=== PATIENT | male | born 1985 | race Caucasian/White ===

== ENCOUNTER 2019-02-14 19:14 | Emergency (ER) | payer MEDICAID ==
[~2019-02-14] VITALS: Ht 172.7 cm; Wt 104.5 kg
[~2019-02-14 19:14] MED LIST: ALBU8.5H8 IH; CYCL-1 PO; HYDR-4383 PO; IBUP-1985 PO; ONDA4TAB6 PO
[2019-02-14 19:18] VITALS: BP 145/98
[2019-02-14] MEDS ORDERED: triamcinolone acetonide 40mg/ml inj IM ONE (20:55)
[2019-02-14] MEDS ORDERED: diphenhydrAMINE 25mg capsule PO ONE (20:55)
[2019-02-14] MEDS ORDERED: CEPH500C5 PO (21:20)
[2019-02-14] MEDS ORDERED: PRED20TA PO (21:20)
== END 2019-02-14 21:28 | disposition home or self-care (01) ==
LOC: ER 19:14
DX: L23.7 Allergic contact dermatitis due to plants, except food (principal); J45.909 Unspecified asthma, uncomplicated; F15.90 Other stimulant use, unspecified, uncomplicated; Z86.19 Personal history of other infectious and parasitic diseases; Z98.890 Other specified postprocedural states; Z88.7 Allergy status to serum and vaccine; Z79.899 Other long term (current) drug therapy
CPT/HCPCS: 96372; 99283; J3301; Q0163

== ENCOUNTER 2019-03-14 17:33 | Emergency (ER) | payer MEDICAID ==
[~2019-03-14] VITALS: Ht 172.7 cm; Wt 100.0 kg
[2019-03-14 17:36] VITALS: BP 134/82
[2019-03-14] MEDS ORDERED: PRED10TA PO (19:10)
[2019-03-14] MEDS ORDERED: FAMO40TA73 PO (19:11)
[2019-03-14] MEDS ORDERED: DIPH25CA83 PO (19:11)
== END 2019-03-14 19:34 | disposition home or self-care (01) ==
LOC: ER 17:35
DX: L23.7 Allergic contact dermatitis due to plants, except food (principal); J45.909 Unspecified asthma, uncomplicated; G89.29 Other chronic pain; F15.90 Other stimulant use, unspecified, uncomplicated; Z86.19 Personal history of other infectious and parasitic diseases; Z98.890 Other specified postprocedural states; Z88.7 Allergy status to serum and vaccine; Z79.899 Other long term (current) drug therapy
CPT/HCPCS: 99283

== ENCOUNTER 2020-03-18 18:09 | Emergency (ER) | payer MEDICAID ==
[~2020-03-18] VITALS: Ht 175.3 cm; Wt 102.6 kg
[~2020-03-18 18:09] MED LIST changes: +DIPH25CA83 PO; +FAMO40TA73 PO; +PRED10TA PO
[2020-03-18 18:36] VITALS: BP 138/81
[2020-03-18] MEDS ORDERED: penicillin G benzathine 1.2 million unit/2ml syringe IM ONE (19:05)
== END 2020-03-18 19:45 | disposition home or self-care (01) ==
LOC: ER 18:09
DX: Z20.2 Contact with and (suspected) exposure to infections with a predominantly sexual mode of transmission (principal); J45.909 Unspecified asthma, uncomplicated; G89.29 Other chronic pain; F17.200 Nicotine dependence, unspecified, uncomplicated; F15.90 Other stimulant use, unspecified, uncomplicated; Z86.19 Personal history of other infectious and parasitic diseases; Z98.890 Other specified postprocedural states; Z88.8 Allergy status to other drugs, medicaments and biological substances; Z79.899 Other long term (current) drug therapy
CPT/HCPCS: 36415; 86592; 96372; 99283; J0561

== ENCOUNTER 2021-01-30 21:20 | Emergency (ER) | payer MEDICAID ==
[~2021-01-30] VITALS: Ht 172.7 cm; Wt 100.0 kg
[~2021-01-30 21:20] MED LIST changes: +ALBU8.5H17 IH; -ALBU8.5H8 IH
[2021-01-30 21:38] VITALS: BP 141/106
[2021-01-30] MEDS ORDERED: PRED10TA23 PO (21:45)
[2021-01-30] MEDS ORDERED: triamcinolone acetonide 40mg/ml inj IM ONE (21:45)
[2021-01-30] MEDS ORDERED: predniSONE 20 mg tablet PO ONE (21:45)
[2021-01-30] MEDS ORDERED: HYDR28CR14 TOP (21:45)
== END 2021-01-30 22:03 | disposition home or self-care (01) ==
LOC: ER 21:21
DX: L23.7 Allergic contact dermatitis due to plants, except food (principal); R06.02 Shortness of breath; J45.909 Unspecified asthma, uncomplicated; G89.29 Other chronic pain; F15.90 Other stimulant use, unspecified, uncomplicated; Z86.19 Personal history of other infectious and parasitic diseases; Z98.890 Other specified postprocedural states; Z88.7 Allergy status to serum and vaccine; Z79.899 Other long term (current) drug therapy
CPT/HCPCS: 96372; 99283; J3301; J7512

== ENCOUNTER 2021-09-13 21:32 | Emergency (ER) | payer MEDICAID ==
[~2021-09-13] VITALS: Ht 175.3 cm; Wt 102.3 kg
[~2021-09-13 21:32] MED LIST changes: +HYDR28CR14 TOP
[2021-09-13 21:35] VITALS: BP 176/99
[2021-09-13 22:10] LABS: BASOPHILS % (AUTO) 0.5 % (0-1); EOSINOPHILS # (AUTO) 0.2 X10'3 (0-0.9); EOSINOPHILS % (AUTO) 3.1 % (0-6); HEMATOCRIT 44.9 % (42.0-52.0); HEMOGLOBIN 15.2 g/dl (14.0-17.9); LYMPHOCYTES # (AUTO) 1.6 X10'3 (1.1-4.8); LYMPHOCYTES % (AUTO) 31.6 % (21-51); MEAN CORPUSCULAR HEMOGLOBIN 29.9 PG (27.0-31.0); MEAN CORPUSCULAR HGB CONC 33.9 g/dL (33.0-36.5); MEAN CORPUSCULAR VOLUME 88.2 FL (78-98); MEAN PLATELET VOLUME 8.3 FL (7.4-10.4); MONOCYTES # (AUTO) 0.5 X10'3 (0-0.9); MONOCYTES % (AUTO) 9.7 % (2-12); NEUTROPHILS # (AUTO) 2.9 X10'3 (1.8-7.7); NEUTROPHILS % (AUTO) 55.1 % (42-75); PLATELET COUNT 260 X10'3 (140-440); RED BLOOD COUNT 5.09 X10'6 (4.70-6.10); RED CELL DISTRIBUTION WIDTH 12.7 % (11.5-14.5); WHITE BLOOD COUNT 5.2 X10'3 (4.5-11.0)
[2021-09-13 22:21] LABS: ALANINE AMINOTRANSFERASE 110 U/L (12-78); ALBUMIN 4.1 G/DL (3.4-5.0); ALKALINE PHOSPHATASE 97 IU/L (46-116); ANION GAP 7 (8-16); ASPARTATE AMINO TRANSFERASE 63 U/L (10-37); BILIRUBIN,TOTAL 0.2 MG/DL (0.1-1.0); BLOOD UREA NITROGEN 19 MG/DL (7-18); BUN/CREATININE RATIO 17.3 (5.4-32.0); CALCIUM 9.2 MG/DL (8.5-10.1); CHLORIDE 104 MMOL/L (99-107); GLUCOSE 113 MG/DL (70-104); LIPASE 75 U/L (73-393); POTASSIUM 4.6 MMOL/L (3.5-5.1); SODIUM 143 MMOL/L (135-145); TOTAL PROTEIN 8.4 G/DL (6.4-8.2); eGFR 77 ML/MIN
== END 2021-09-13 22:38 | disposition left against medical advice (07) ==
LOC: ER 21:33
DX: R10.9 Unspecified abdominal pain (principal); Z53.21 Procedure and treatment not carried out due to patient leaving prior to being seen by health care provider
CPT/HCPCS: 36415; 80053; 83690; 85025

== ENCOUNTER 2021-09-18 15:15 | Emergency (ER) | payer MEDICAID ==
[~2021-09-18] VITALS: Ht 175.3 cm; Wt 100.0 kg
[2021-09-18 15:56] VITALS: BP 129/93
[2021-09-18] MEDS ORDERED: DOXYCYCLINE 100MG CAPSULE PO STA (18:16)
[2021-09-18] MEDS ORDERED: cephalexin 250mg capsule PO ONE (18:20)
[2021-09-18] MEDS ORDERED: DOXY100C76 PO (18:33)
[2021-09-18] MEDS ORDERED: CEPH500C2 PO (18:33)
== END 2021-09-18 18:50 | disposition home or self-care (01) ==
LOC: ER 15:15
DX: L03.116 Cellulitis of left lower limb (principal); I10 Essential (primary) hypertension; J45.909 Unspecified asthma, uncomplicated; G89.29 Other chronic pain; M54.50 Low back pain, unspecified; F17.200 Nicotine dependence, unspecified, uncomplicated; F15.20 Other stimulant dependence, uncomplicated; Z88.7 Allergy status to serum and vaccine
CPT/HCPCS: 99283

== ENCOUNTER 2022-06-07 14:03 | Emergency (ER) | payer MEDICAID ==
[~2022-06-07] VITALS: Ht 175.3 cm; Wt 106.8 kg
[2022-06-07 14:28] VITALS: BP 156/90
[2022-06-07] MEDS ORDERED: amox tr/potassium clavulanate 875/125mg TAB PO ONE (14:30)
[2022-06-07] MEDS ORDERED: bacitracin 15gm ointment TP ONE (14:35)
[2022-06-07] MEDS ORDERED: AMOX-117 PO (15:17)
== END 2022-06-07 15:50 | disposition home or self-care (01) ==
LOC: ER 14:03
DX: S61.431A Puncture wound without foreign body of right hand, initial encounter (principal); I10 Essential (primary) hypertension; J45.909 Unspecified asthma, uncomplicated; W50.3XXA Accidental bite by another person, initial encounter; Y93.89 Activity, other specified; Y92.89 Other specified places as the place of occurrence of the external cause; Y99.8 Other external cause status
CPT/HCPCS: 73130; 99283

== ENCOUNTER 2022-07-27 16:37 | Emergency (ER) | payer MEDICAID ==
[~2022-07-27] VITALS: Ht 175.3 cm; Wt 140.2 kg
[2022-07-27 16:39] VITALS: BP 189/123
[2022-07-27] MEDS ORDERED: AMOX-117 PO (16:54)
[2022-07-27] MEDS ORDERED: IBUP-1984 PO (16:54)
[2022-07-27] MEDS ORDERED: HYDROcodone/acetaminophen 5mg/325mg tablet PO ONE (16:55)
== END 2022-07-27 17:10 | disposition home or self-care (01) ==
LOC: ER 16:38
DX: K04.7 Periapical abscess without sinus (principal); I10 Essential (primary) hypertension; G89.29 Other chronic pain; M54.9 Dorsalgia, unspecified; F15.10 Other stimulant abuse, uncomplicated; Z79.899 Other long term (current) drug therapy; Z79.1 Long term (current) use of non-steroidal anti-inflammatories (NSAID); Z79.2 Long term (current) use of antibiotics
CPT/HCPCS: 99283

== ENCOUNTER 2022-11-07 06:34 | Emergency (ER) | payer MEDICAID ==
[~2022-11-07] VITALS: Ht 175.3 cm; Wt 100.2 kg
[2022-11-07 06:45] VITALS: BP 170/104; PULSE 94; TEMP 97.3; O2SAT 100
--- NOTE | 2022-11-07 07:11 | NUR ---
while pt. was in Triage fainted momentarily, TL advised and present plan to move pt. to ED 15. IV started and labs drawn
[2022-11-07] MEDS ORDERED: normal saline 1000ML IV soln IVB ONE ×2 (07:15→08:15)
[2022-11-07] MEDS ORDERED: ketorolac trometh. 30mg/ml inj. IV ONE (07:15)
[2022-11-07 07:26] LABS: BASOPHILS # (AUTO) 0.1 X10'3 (0-0.2); BASOPHILS % (AUTO) 0.9 % (0-1); EOSINOPHILS # (AUTO) 0.1 X10'3 (0-0.9); EOSINOPHILS % (AUTO) 1.5 % (0-6); HEMATOCRIT 42.6 % (42.0-52.0); HEMOGLOBIN 14.9 g/dl (14.0-17.9); LYMPHOCYTES # (AUTO) 2.8 X10'3 (1.1-4.8); LYMPHOCYTES % (AUTO) 34.4 % (21-51); MEAN CORPUSCULAR HEMOGLOBIN 30.2 PG (27.0-31.0); MEAN CORPUSCULAR HGB CONC 34.9 g/dL (33.0-36.5); MEAN CORPUSCULAR VOLUME 86.5 FL (78-98); MEAN PLATELET VOLUME 9.2 FL (7.4-10.4); MONOCYTES # (AUTO) 1.1 X10'3 (0-0.9); MONOCYTES % (AUTO) 13.4 % (2-12); NEUTROPHILS # (AUTO) 4.1 X10'3 (1.8-7.7); NEUTROPHILS % (AUTO) 49.8 % (42-75); PLATELET COUNT 272 X10'3 (140-440); RED BLOOD COUNT 4.92 X10'6 (4.70-6.10); WHITE BLOOD COUNT 8.2 X10'3 (4.5-11.0)
[2022-11-07 07:40] LABS: ALANINE AMINOTRANSFERASE 188 U/L (12-78); ALBUMIN 4.1 G/DL (3.4-5.0); ALKALINE PHOSPHATASE 112 IU/L (46-116); ANION GAP 10 (8-16); ASPARTATE AMINO TRANSFERASE 96 U/L (10-37); BILIRUBIN,TOTAL 0.6 MG/DL (0.1-1.0); BLOOD UREA NITROGEN 22 MG/DL (7-18); BUN/CREATININE RATIO 19.6 (10.0-20.0); CHLORIDE 103 MMOL/L (99-107); CREATININE 1.12 MG/DL (0.60-1.10); GLUCOSE 113 MG/DL (70-104); LIPASE 67 U/L (73-393); POTASSIUM 3.9 MMOL/L (3.5-5.1); SODIUM 141 MMOL/L (135-145); TOTAL CARBON DIOXIDE 27.9 MMOL/L (24-32); TOTAL PROTEIN 8.4 G/DL (6.4-8.2); eCRCL 92 ML/MIN; eGFR 75 ML/MIN
[2022-11-07 07:44] LABS: CALCIUM 9.2 MG/DL (8.5-10.1)
[2022-11-07] MEDS ORDERED: HYDROcodone/acetaminophen 10/325mg tab PO ONE (08:25)
[2022-11-07] MEDS ORDERED: HYDR-3973 PO (08:27)
[2022-11-07] MEDS ORDERED: FLO0.4C PO (08:29)
[2022-11-07 08:53] VITALS: RESP 16
== END 2022-11-07 09:04 | disposition home or self-care (01) ==
LOC: ER 06:34
DX: N23 Unspecified renal colic (principal); I10 Essential (primary) hypertension; J45.909 Unspecified asthma, uncomplicated; G89.29 Other chronic pain; F15.90 Other stimulant use, unspecified, uncomplicated; F17.210 Nicotine dependence, cigarettes, uncomplicated; Z86.14 Personal history of Methicillin resistant Staphylococcus aureus infection; Z98.890 Other specified postprocedural states; Z88.7 Allergy status to serum and vaccine; Z79.899 Other long term (current) drug therapy
CPT/HCPCS: 36415; 74176; 80053; 83690; 85025; 96374; 99285; J1885; J7030

== ENCOUNTER 2023-08-27 09:53 | Emergency (ER) | payer MEDICAID ==
[~2023-08-27] VITALS: Ht 175.3 cm; Wt 108.8 kg
[2023-08-27] MEDS ORDERED: ondansetron/PF 4mg/2ml inj IV PRN (10:40)
[2023-08-27] MEDS ORDERED: morphine 2 MG/ML inj. syringe IV ONE (10:40)
[2023-08-27] MEDS ORDERED: normal saline 1000ml 1,000 ML IV SCH (10:40)
[2023-08-27] MEDS: ketorolac trometh. 30mg/ml inj. IV ONE (10:50)
[2023-08-27] MEDS: normal saline 1000ml 1,000 ML IV ONE (10:51)
[2023-08-27] MEDS: morphine 2 MG/ML inj. syringe IV ONE (10:51)
[2023-08-27 10:56] LABS: BASOPHILS # (AUTO) 0.1 X10'3 (0-0.2); BASOPHILS % (AUTO) 0.9 % (0-1); EOSINOPHILS # (AUTO) 0.1 X10'3 (0-0.9); EOSINOPHILS % (AUTO) 1.7 % (0-6); HEMOGLOBIN 16.4 g/dl (14.0-17.9); LYMPHOCYTES # (AUTO) 1.7 X10'3 (1.1-4.8); LYMPHOCYTES % (AUTO) 22.1 % (21-51); MEAN CORPUSCULAR HEMOGLOBIN 30.1 PG (27.0-31.0); MEAN CORPUSCULAR HGB CONC 34.1 g/dL (33.0-36.5); MEAN CORPUSCULAR VOLUME 88.3 FL (78-98); MEAN PLATELET VOLUME 8.2 FL (7.4-10.4); MONOCYTES # (AUTO) 0.8 X10'3 (0-0.9); MONOCYTES % (AUTO) 10.6 % (2-12); NEUTROPHILS % (AUTO) 64.7 % (42-75); PLATELET COUNT 272 X10'3 (140-440); RED BLOOD COUNT 5.43 X10'6 (4.70-6.10); RED CELL DISTRIBUTION WIDTH 12.7 % (11.5-14.5); WHITE BLOOD COUNT 7.7 X10'3 (4.5-11.0)
[2023-08-27 11:11] LABS: ALANINE AMINOTRANSFERASE 120 U/L (12-78); ALBUMIN 3.7 G/DL (3.4-5.0); ALBUMIN/GLOBULIN RATIO 0.8 (1.1-1.5); ALKALINE PHOSPHATASE 102 IU/L (46-116); ANION GAP 9 (8-16); ASPARTATE AMINO TRANSFERASE 78 U/L (10-37); BILIRUBIN,TOTAL 0.4 MG/DL (0.1-1.0); BLOOD UREA NITROGEN 12 MG/DL (7-18); BUN/CREATININE RATIO 11.7 (10.0-20.0); CALCIUM 9.4 MG/DL (8.5-10.1); CHLORIDE 100 MMOL/L (99-107); CREATININE 1.03 MG/DL (0.60-1.10); GLUCOSE 89 MG/DL (70-104); LIPASE 27 U/L (16-77); POTASSIUM 4.3 MMOL/L (3.5-5.1); SODIUM 140 MMOL/L (135-145); TOTAL CARBON DIOXIDE 31.2 MMOL/L (24-32); TOTAL PROTEIN 8.2 G/DL (6.4-8.2); eCRCL 99 ML/MIN; eGFR 82 ML/MIN
[2023-08-27] MEDS: tamsulosin 0.4mg capsule PO ONE (11:33)
[2023-08-27 12:29] LABS: BILIRUBIN,URINE NEGATIVE (Neg); CLARITY,URINE CLEAR (Clear); COLOR,URINE YELLOW (Yellow); GLUCOSE, URINE NEGATIVE (Neg); KETONES,URINE NEGATIVE (Neg); LEUKOCYTE ESTERASE ,URINE SMALL (Neg); NITRITES, URINE NEGATIVE (Neg); OCCULT BLOOD,URINE NEGATIVE (Neg); PH,URINE 6.5 (4.8-8.0); PROTEIN,URINE NEGATIVE (Neg); UROBILINOGEN,URINE 0.2 E.U/dL (0.2-1.0)
[2023-08-27 12:42] LABS: UA COLLECTION TYPE CLN CATCH MIDSTREAM
[2023-08-27 12:48] LABS: BACTERIA,URINE 1+ /HPF (Neg); MUCUS STRANDS MODERATE /LPF (Neg); SQUAMOUS EPITHELIAL CELL,UR FEW /LPF (FEW); WBC,URINE 20-30 /HPF (0-4)
[2023-08-27] MEDS ORDERED: CEPH250T PO (13:06)
[2023-08-27 13:17] VITALS: BP 121/83; PULSE 66; RESP 17; TEMP 98.7; O2SAT 96
== END 2023-08-27 13:39 | disposition home or self-care (01) ==
LOC: ER 09:54
DX: N20.0 Calculus of kidney (principal); N23 Unspecified renal colic; N39.0 Urinary tract infection, site not specified; I10 Essential (primary) hypertension; J45.909 Unspecified asthma, uncomplicated; F15.90 Other stimulant use, unspecified, uncomplicated; Z88.8 Allergy status to other drugs, medicaments and biological substances; Z79.899 Other long term (current) drug therapy; Z79.2 Long term (current) use of antibiotics
CPT/HCPCS: 36415; 76770; 80053; 81001; 83690; 85025; 87088; 96361; 96374; 99285; J2270; J7030

== ENCOUNTER 2024-07-12 14:24 | Emergency (ER) | payer MEDICAID ==
[~2024-07-12] VITALS: Ht 175.3 cm; Wt 115.9 kg
[2024-07-12 14:41] VITALS: BP 134/75; PULSE 102; RESP 18; TEMP 97.8; O2SAT 96
[2024-07-12 15:13] LABS: BASOPHILS % (AUTO) 0.5 % (0-1); EOSINOPHILS % (AUTO) 0.7 % (0-6); HEMATOCRIT 42.8 % (42.0-52.0); LYMPHOCYTES # (AUTO) 1.4 X10'3 (1.1-4.8); LYMPHOCYTES % (AUTO) 19.1 % (21-51); MEAN CORPUSCULAR HEMOGLOBIN 31.3 PG (27.0-31.0); MEAN CORPUSCULAR HGB CONC 35.2 g/dL (33.0-36.5); MEAN CORPUSCULAR VOLUME 89.1 FL (78-98); MEAN PLATELET VOLUME 8.3 FL (7.4-10.4); MONOCYTES # (AUTO) 0.9 X10'3 (0-0.9); MONOCYTES % (AUTO) 12.1 % (2-12); NEUTROPHILS # (AUTO) 4.8 X10'3 (1.8-7.7); NEUTROPHILS % (AUTO) 67.6 % (42-75); PLATELET COUNT 324 X10'3 (140-440); RED CELL DISTRIBUTION WIDTH 12.4 % (11.5-14.5); WHITE BLOOD COUNT 7.1 X10'3 (4.5-11.0)
[2024-07-12 15:31] LABS: ALANINE AMINOTRANSFERASE 271 U/L (12-78); ALBUMIN 3.9 G/DL (3.4-5.0); ALBUMIN/GLOBULIN RATIO 0.9 (1.1-1.5); ALKALINE PHOSPHATASE 104 IU/L (46-116); ANION GAP 6 (8-16); ASPARTATE AMINO TRANSFERASE 220 U/L (10-37); BILIRUBIN,TOTAL 1.3 MG/DL (0.1-1.0); BLOOD UREA NITROGEN 22 MG/DL (7-18); BUN/CREATININE RATIO 19.5 (10.0-20.0); CALCIUM 8.9 MG/DL (8.5-10.1); CHLORIDE 97 MMOL/L (99-107); CREATININE 1.13 MG/DL (0.60-1.10); GLUCOSE 106 MG/DL (70-104); POTASSIUM 4.1 MMOL/L (3.5-5.1); SODIUM 134 MMOL/L (135-145); TOTAL CARBON DIOXIDE 31.2 MMOL/L (24-32); TOTAL PROTEIN 8.4 G/DL (6.4-8.2); eCRCL 90 ML/MIN; eGFR 73 ML/MIN
== END 2024-07-12 16:39 | disposition left against medical advice (07) ==
LOC: ER 14:24
DX: R33.9 Retention of urine, unspecified (principal); Z88.8 Allergy status to other drugs, medicaments and biological substances; Z53.21 Procedure and treatment not carried out due to patient leaving prior to being seen by health care provider
CPT/HCPCS: 36415; 80053; 85025